=== PATIENT | male | born 2000 | race Caucasian/White ===

== ENCOUNTER 2020-07-28 18:21 | Emergency (ER) | payer OTHER ==
[~2020-07-28] VITALS: Ht 175.3 cm; Wt 100.0 kg
[2020-07-28 18:33] VITALS: TEMP 98.7
[2020-07-28 21:15] VITALS: BP 121/75; PULSE 97
== END 2020-07-28 21:15 | disposition home or self-care (01) ==
LOC: COL.ER 18:21
DX: R04.2 Hemoptysis (principal); F17.210 Nicotine dependence, cigarettes, uncomplicated